=== PATIENT | female | born 1945 | race Caucasian/White ===

== ENCOUNTER 2016-12-14 07:47 | Day surgery (SDC) | payer OTHER ==
[2016-12-14] MEDS ORDERED: TETRACAINE 0.5% OPHTH 1 DOSE AFFEYE ONE ×2 (08:00→11:15)
[2016-12-14] MEDS ORDERED: VIGAMOX 0.5% OPHTH 1 DOSE AFFEYE ONE ×4 (08:05→11:38)
[2016-12-14] MEDS ORDERED: PROLENSA OPHTH 1 DOSE AFFEYE ONE (08:16)
[2016-12-14] MEDS ORDERED: ALPHAGAN-P OPHTH 1 DOSE AFFEYE ONE (08:17)
[2016-12-14] MEDS ORDERED: NS 500 ML IV 500 ML IV ONE (08:18)
[2016-12-14] MEDS ORDERED: CYCLOGYL 1% OPHTH 1 DOSE OP ONE ×3 (08:18→08:20)
[2016-12-14] MEDS ORDERED: AK-DILATE 2.5% OPHTH 1 DOSE OP ONE ×3 (08:18→08:20)
[2016-12-14] MEDS ORDERED: MYDRIACIL OPHTH 1 DOSE AFFEYE ONE ×3 (08:18→08:20)
[2016-12-14] MEDS ORDERED: BETADINE OPHTH SOLN 5% EACHEYE ONE (11:15)
[2016-12-14] MEDS ORDERED: XYLOCAINE-MPF 1% IJ ONE (11:28)
[2016-12-14] MEDS ORDERED: ADRENALINE CHL INJ IJ ONE (11:28)
[2016-12-14] MEDS ORDERED: DUOVISC IO ONE (11:28)
[2016-12-14] MEDS ORDERED: BSS OPHTH (PLAIN) 500 ML with VANCOMYCIN HCL 500 MG VIAL 25 MG, ADRENALINE CHL INJ 1 MG IR ONE ×3 (11:28)
[2016-12-14 12:57] VITALS: BP 176/84
[2016-12-14] MEDS ORDERED: DIPRIVAN VIAL ONE (15:39)
== END 2016-12-14 12:10 | disposition home or self-care (01) ==
LOC: SURG1 07:47
PROVIDERS: ATTEND Ophthalmology
PROC: 08DK3ZZ Extraction of Left Lens, Percutaneous Approach (ICD-10-PCS; principal; 2016-12-14 13:30)
PROC: 08RK3JZ Replacement of Left Lens with Synthetic Substitute, Percutaneous Approach (ICD-10-PCS; principal; 2016-12-14 13:30)
DX: H25.12 Age-related nuclear cataract, left eye (principal); H52.222 Regular astigmatism, left eye
CPT/HCPCS: 99100; A4217; J0170; J3370; J3490

== ENCOUNTER 2017-01-18 06:54 | Day surgery (SDC) | payer OTHER ==
[2017-01-18] MEDS ORDERED: NS 500 ML IV 500 ML IV ONE (07:00)
[2017-01-18] MEDS ORDERED: TETRACAINE 0.5% OPHTH 1 DOSE AFFEYE ONE ×4 (07:52→10:13)
[2017-01-18] MEDS ORDERED: VIGAMOX 0.5% OPHTH 1 DOSE AFFEYE ONE ×3 (07:53→10:27)
[2017-01-18] MEDS ORDERED: PROLENSA OPHTH 1 DOSE AFFEYE ONE (08:03)
[2017-01-18] MEDS ORDERED: ALPHAGAN-P OPHTH 1 DOSE AFFEYE ONE ×2 (08:05→08:06)
[2017-01-18] MEDS ORDERED: AK-DILATE 2.5% OPHTH 1 DOSE OP ONE ×5 (08:06→08:20)
[2017-01-18] MEDS ORDERED: CYCLOGYL 1% OPHTH 1 DOSE OP ONE ×5 (08:06→08:20)
[2017-01-18] MEDS ORDERED: MYDRIACIL OPHTH 1 DOSE AFFEYE ONE ×5 (08:06→08:20)
[2017-01-18] MEDS ORDERED: BETADINE OPHTH SOLN 5% EACHEYE ONE (10:04)
[2017-01-18] MEDS ORDERED: ADRENALINE CHL INJ IJ ONE ×2 (10:08→10:13)
[2017-01-18] MEDS ORDERED: BSS OPHTH (PLAIN) 500 ML with VANCOMYCIN HCL 500 MG VIAL 25 MG, ADRENALINE CHL INJ 1 MG IR ONE ×6 (10:08)
[2017-01-18] MEDS ORDERED: DUOVISC IO ONE ×2 (10:08→10:13)
[2017-01-18] MEDS ORDERED: XYLOCAINE-MPF 1% IJ ONE ×2 (10:08→10:13)
[2017-01-18] MEDS ORDERED: DIPRIVAN VIAL ONE (10:19)
[2017-01-18 10:52] VITALS: BP 147/85
== END 2017-01-18 10:50 | disposition home or self-care (01) ==
LOC: SURG1 06:54
PROVIDERS: ATTEND Ophthalmology
PROC: 08RJ3JZ Replacement of Right Lens with Synthetic Substitute, Percutaneous Approach (ICD-10-PCS; principal; 2017-01-18 07:30)
PROC: 08DJ3ZZ Extraction of Right Lens, Percutaneous Approach (ICD-10-PCS; principal; 2017-01-18 07:30)
DX: H25.11 Age-related nuclear cataract, right eye (principal); H52.221 Regular astigmatism, right eye
CPT/HCPCS: A4222; A4217; J0170; J3370; J3490